=== PATIENT | male | born 1965 | race Caucasian/White ===

== ENCOUNTER 2016-09-28 14:37 | Emergency (ER) | payer OTHER ==
[~2016-09-28] VITALS: Ht 167.6 cm; Wt 59.1 kg
[~2016-09-28 14:37] MED LIST: BENADRYL50 MG; FIORICET 325 MG1 TA1; LORTAB 5/500 501 TAB PO; MINIPRESS 1M1 MG/CAP PO; NEURONTIN300 MG/CAP PO; NO HOME MEDICATIONS; NORCO 325 MG-51 TAB; PERCOCET 500 MG1 TAB PO; PRILOSEC 20MG20 MG PO; RISPERDAL4 MG PO; ROBAXIN500 MG PO; ROXICODONE 55 MG/TAB PO; UNABLE; ZOLOFT 100MG100 MG PO
[2016-09-28 14:38] VITALS: TEMP 97.9
[2016-09-28 15:05] LABS: BASO # 0.1 (0.0-0.2); EOS # 0.2 (0.0-0.7); EOS % 2.4 % (0-4.0); GRAN # 4.1 (1.4-6.5); GRAN % 60.7 % (42.2-75.2); HEMATOCRIT 44.9 % (42.0-52.0); HEMOGLOBIN 15.9 g/dl (13.5-18.0); LYMPH # 2.1 (1.2-3.4); LYMPH % 30.9 % (20.0-51.0); MEAN CELL VOLUME 93 fl (80.0-100.0); MEAN CORPUSCULAR HEMOGLOBIN 33 pg (27.0-31.0); MEAN CORPUSCULAR HGB CONC 35 g/dl (33.0-37.0); MONO # 0.3 (0.1-0.6); MONO % 4.9 % (1.7-9.3); PLATELET COUNT 95 K/mm3 (130-400); RED BLOOD COUNT 4.84 M/mm3 (4.20-5.60); WHITE BLOOD COUNT 6.7 K/mm3 (4.8-10.8)
[2016-09-28 15:14] LABS: ADJUSTED CALCIUM 8.5 mg/dL (8.4-10.2); ALBUMIN 4.1 gm/dL (3.5-5.0); BILIRUBIN,TOTAL 0.9 mg/dL (0.0-1.0); CALCIUM 8.6 mg/dL (8.4-10.2); CREATININE, serum 0.72 mg/dL (0.66-1.25); POTASSIUM 4.3 mmol/L (3.4-5.0); TOTAL PROTEIN 7.5 gm/dL (6.4-8.2)
[2016-09-28 16:45] VITALS: BP 145/86; PULSE 106
== END 2016-09-28 16:46 | disposition home or self-care (01) ==
LOC: COL.ER 14:37
PROVIDERS: Emergency Medicine
DX: F10.229 Alcohol dependence with intoxication, unspecified (principal); Y90.8 Blood alcohol level of 240 mg/100 ml or more; F17.200 Nicotine dependence, unspecified, uncomplicated
CPT/HCPCS: J2060; J7030

== ENCOUNTER 2017-08-29 09:56 | Inpatient (IN) | payer OTHER ==
[~2017-08-29] VITALS: Ht 152.4 cm; Wt 66.6 kg
[2017-08-29] VITALS (207 sets, daily range): BP systolic 101–117; BP diastolic 76–83; PULSE 97–131; TEMP 97.5–97.7; O2SAT 69–100
[~2017-08-29 09:56] MED LIST changes: -BENADRYL50 MG; +BENADRYL50 MG PO
[2017-08-29] MEDS ORDERED: KEPPRA PO (10:10)
[2017-08-29 10:28] LABS: BASO % 0.3 % (0.0-2.0); EOS # 0.1 (0.0-0.7); EOS % 0.9 % (0-4.0); GRAN # 8.8 (1.4-6.5); GRAN % 74.9 % (42.2-75.2); HEMATOCRIT 46.9 % (42.0-52.0); HEMOGLOBIN 16.2 g/dl (13.5-18.0); LYMPH # 1.8 (1.2-3.4); LYMPH % 14.9 % (20.0-51.0); MEAN CELL VOLUME 95 fl (80.0-100.0); MEAN CORPUSCULAR HEMOGLOBIN 33 pg (27.0-31.0); MEAN CORPUSCULAR HGB CONC 35 g/dl (33.0-37.0); MEAN PLATELET VOLUME 10.3 fl (7.4-10.4); MONO # 0.9 (0.1-0.6); PLATELET COUNT 150 K/mm3 (130-400); RED BLOOD COUNT 4.94 M/mm3 (4.20-5.60); WHITE BLOOD COUNT 11.7 K/mm3 (4.8-10.8)
[2017-08-29 10:33] LABS: PROTHROMBIN TIME 11.9 SECONDS (9.7-12.8)
[2017-08-29 10:38] LABS: ALANINE AMINOTRANSFERASE 84 U/L (21-72); ALBUMIN 4.7 gm/dL (3.5-5.0); ALKALINE PHOSPHATASE 159 U/L (50-136); ANION GAP 19 mmol/L (7-16); BILIRUBIN,TOTAL 1.6 mg/dL (0.0-1.0); BLOOD UREA NITROGEN 15 mg/dL (9-20); CALCIUM 9.6 mg/dL (8.4-10.2); CARBON DIOXIDE 22 mmol/L (22-30); CHLORIDE 92 mmol/L (98-107); CREATININE, serum 1.23 mg/dL (0.66-1.25); GLUCOSE 182 mg/dL (74-106); POTASSIUM 3.4 mmol/L (3.4-5.0); SODIUM 133 mmol/L (137-145); TOTAL PROTEIN 8.1 gm/dL (6.4-8.2)
[2017-08-29 10:52] LABS: TROPONIN-I < 0.012 ng/mL (0.000-0.034)
[2017-08-29 11:03] LABS: INFLUENZA A NEGATIVE; INFLUENZA B NEGATIVE
[2017-08-29 11:23] LABS: PROLACTIN 52.7 ng/mL (3.7-17.9)
[2017-08-29 11:31] LABS: COLLECTION METHOD CLEAN CATCH
[2017-08-29 11:46] LABS: HYALINE CAST >12 /lpf; MUCOUS Present /lpf; PH 5 (5-8); URINE APPEARANCE Cloudy; URINE BACTERIA Rare /hpf; URINE BILIRUBIN Positive (NEGATIVE); URINE BLOOD 1+ (NEGATIVE); URINE COLOR Amber; URINE GLUCOSE Negative (NEGATIVE); URINE KETONE Trace (NEGATIVE); URINE LEUKOCYTE ESTERASE Negative (NEGATIVE); URINE PROTEIN(semi-quant) 3+ (NEGATIVE); URINE RBC 20-50 /hpf; URINE UROBILINOGEN >=4.0 mg/dL (NEGATIVE)
[2017-08-29 12:21] LABS: LIPASE 63 U/L (23-300)
[2017-08-29 17:25] LABS: AMPHETAMINE URINE NEGATIVE; BARBITURATES URINE NEGATIVE; BENZODIAZEPINES URINE NEGATIVE; BUPRENORPHINE URINE NEGATIVE; METHADONE URINE NEGATIVE; OPIATES URINE POSITIVE; OXYCODONE URINE POSITIVE; PHENCYCLIDINE URINE NEGATIVE; PROPOXYPHENE URINE NEGATIVE; THC CANNABINOIDS URINE NEGATIVE; TRICYCLIC ANTIDEPRESS URINE NEGATIVE
[2017-08-30] VITALS (7 sets, daily range): BP systolic 110–141; BP diastolic 71–100; PULSE 74–97; TEMP 97.1–97.8
[2017-08-30 05:23] LABS: ADD PATHOLOGY DIFF REVIEW NO
[2017-08-30 05:37] LABS: ADJUSTED CALCIUM 8.8 mg/dL (8.4-10.2); ALBUMIN 2.7 gm/dL (3.5-5.0); BILIRUBIN,TOTAL 0.8 mg/dL (0.0-1.0); CALCIUM 7.8 mg/dL (8.4-10.2); CHOLESTEROL RISK RATIO 3.7; CREATININE, serum 0.63 mg/dL (0.66-1.25); MAGNESIUM 1.4 mg/dL (1.6-2.3); POTASSIUM 3.4 mmol/L (3.4-5.0); TOTAL PROTEIN 5.4 gm/dL (6.4-8.2)
[2017-08-30 05:54] LABS: PROTHROMBIN TIME 12.1 SECONDS (9.7-12.8)
[2017-08-30 06:16] LABS: MEAN CELL VOLUME 97 fl (80.0-100.0); MEAN CORPUSCULAR HGB CONC 34 g/dl (33.0-37.0); PLATELET COUNT 112 K/mm3 (130-400); RED BLOOD COUNT 3.22 M/mm3 (4.20-5.60); WHITE BLOOD COUNT 5.8 K/mm3 (4.8-10.8)
[2017-08-30 06:18] LABS: HEMATOCRIT 31.1 % (42.0-52.0); HEMOGLOBIN 10.6 g/dl (13.5-18.0); MEAN CORPUSCULAR HEMOGLOBIN 33 pg (27.0-31.0)
[2017-08-30 06:30] LABS: BAND 6 % (0-10); EOSINOPHIL 3 % (0-4); LYMPHOCYTE 32 % (20.0-51.0); NEUTROPHILS 55 % (42.0-75.2); PLATELET ESTIMATE NORMAL (NORMAL); TOTAL CELLS COUNTED 100
[2017-08-30 06:31] LABS: HEMATOCRIT 32.7 % (42.0-52.0); MEAN CELL VOLUME 99 fl (80.0-100.0); MEAN CORPUSCULAR HEMOGLOBIN 33 pg (27.0-31.0); MEAN CORPUSCULAR HGB CONC 33 g/dl (33.0-37.0); MEAN PLATELET VOLUME 11.1 fl (7.4-10.4); PLATELET COUNT 113 K/mm3 (130-400); RED BLOOD COUNT 3.32 M/mm3 (4.20-5.60); WHITE BLOOD COUNT 6.5 K/mm3 (4.8-10.8)
[2017-08-30 06:37] LABS: HEMOGLOBIN 10.8 g/dl (13.5-18.0)
[2017-08-30 09:56] LABS: BASO % 0.5 % (0.0-2.0); EOS # 0.2 (0.0-0.7); EOS % 3.5 % (0-4.0); GRAN # 3.4 (1.4-6.5); GRAN % 58.3 % (42.2-75.2); LYMPH # 1.5 (1.2-3.4); LYMPH % 26.5 % (20.0-51.0); MEAN CELL VOLUME 97 fl (80.0-100.0); MEAN CORPUSCULAR HGB CONC 33 g/dl (33.0-37.0); MEAN PLATELET VOLUME 10.4 fl (7.4-10.4); MONO # 0.6 (0.1-0.6); MONO % 10.7 % (1.7-9.3); PLATELET COUNT 128 K/mm3 (130-400); WHITE BLOOD COUNT 5.8 K/mm3 (4.8-10.8)
[2017-08-30 09:57] LABS: HEMATOCRIT 34.1 % (42.0-52.0); HEMOGLOBIN 11.4 g/dl (13.5-18.0); MEAN CORPUSCULAR HEMOGLOBIN 33 pg (27.0-31.0)
[2017-08-31 00:13] VITALS: BP 132/89; PULSE 84; TEMP 97.5
[2017-08-31 04:28] VITALS: BP 126/89; PULSE 69; TEMP 97.6
[2017-08-31 07:01] LABS: ALBUMIN 2.8 gm/dL (3.5-5.0); BILIRUBIN,TOTAL 0.4 mg/dL (0.0-1.0); CREATININE, serum 0.58 mg/dL (0.66-1.25); MAGNESIUM 1.9 mg/dL (1.6-2.3); POTASSIUM 3.8 mmol/L (3.4-5.0); TOTAL PROTEIN 5.4 gm/dL (6.4-8.2)
[2017-08-31 08:25] VITALS: BP 142/79; PULSE 70; TEMP 97.2
[2017-08-31 12:29] VITALS: BP 142/80; PULSE 68; TEMP 97.6
[2017-08-31 15:44] VITALS: BP 142/97; PULSE 73; TEMP 97.5
[2017-08-31 19:58] VITALS: BP 130/78; PULSE 82; TEMP 97.7
[2017-09-01 00:17] VITALS: BP 122/75; PULSE 75; TEMP 98.1
[2017-09-01 04:00] VITALS: BP 153/87; PULSE 85; TEMP 97.5
[2017-09-01 07:14] LABS: BASO % 0.7 % (0.0-2.0); EOS # 0.2 (0.0-0.7); EOS % 3.8 % (0-4.0); GRAN # 3.2 (1.4-6.5); GRAN % 55.7 % (42.2-75.2); LYMPH # 1.4 (1.2-3.4); LYMPH % 24.8 % (20.0-51.0); MEAN CELL VOLUME 100 fl (80.0-100.0); MEAN CORPUSCULAR HGB CONC 33 g/dl (33.0-37.0); MEAN PLATELET VOLUME 10.2 fl (7.4-10.4); MONO # 0.8 (0.1-0.6); MONO % 14.5 % (1.7-9.3); PLATELET COUNT 162 K/mm3 (130-400); RED BLOOD COUNT 3.32 M/mm3 (4.20-5.60); WHITE BLOOD COUNT 5.8 K/mm3 (4.8-10.8)
[2017-09-01 07:19] LABS: HEMATOCRIT 33.2 % (42.0-52.0); HEMOGLOBIN 10.9 g/dl (13.5-18.0); MEAN CORPUSCULAR HEMOGLOBIN 33 pg (27.0-31.0)
[2017-09-01 07:27] LABS: ALBUMIN 3.3 gm/dL (3.5-5.0); BILIRUBIN,TOTAL 0.4 mg/dL (0.0-1.0); CALCIUM 8.4 mg/dL (8.4-10.2); CREATININE, serum 0.56 mg/dL (0.66-1.25); POTASSIUM 3.5 mmol/L (3.4-5.0)
[2017-09-01 07:46] VITALS: BP 149/92; PULSE 70; TEMP 98
[2017-09-01 11:48] VITALS: BP 161/94; PULSE 90; TEMP 98.2
[2017-09-01 16:22] VITALS: BP 139/82; PULSE 86; TEMP 98.4
[2017-09-01] MEDS ORDERED: INCRUSE EL62.5 MCG/A IH (16:26)
[2017-09-01] MEDS ORDERED: KEPPRA 500MG500 MG PO (16:27)
[2017-09-01] MEDS ORDERED: LIPITOR 10MG10 MG PO (16:27)
[2017-09-01] MEDS ORDERED: ASPIRIN 32325 MG/TAB PO (16:27)
[2017-09-01] MEDS ORDERED: PHENOBARBITAL97.2 MG PO (16:30)
[2017-09-01] MEDS ORDERED: PHENOBARBITAL32.4 MG PO (16:31)
[2017-09-01] MEDS ORDERED: THIAMINE 1100 MG/TAB PO (16:32)
[2017-09-01] MEDS ORDERED: FOLIC ACID 11 MG/TA1 PO (16:32)
[2017-09-01] MEDS ORDERED: DUO-KAPS1 CAP PO (16:32)
[2017-09-01] MEDS ORDERED: NORCO 325 MG-51 TAB PO (20:29)
== END 2017-09-01 17:25 | disposition home or self-care (01) | DRG 100 ==
LOC: COL.ER 09:56 → MEDICAL 12:41 → ICU 12:41 → MEDICAL 08-30 12:49
PROVIDERS: Emergency Medicine; Internal Medicine; Physician Assistant; Psychiatry & Neurology Neurology
DX: G40.409 Other generalized epilepsy and epileptic syndromes, not intractable, without status epilepticus (principal); I63.9 Cerebral infarction, unspecified; E86.0 Dehydration; R19.7 Diarrhea, unspecified; F17.210 Nicotine dependence, cigarettes, uncomplicated; E83.42 Hypomagnesemia; J44.9 Chronic obstructive pulmonary disease, unspecified; Z91.14 Patient's other noncompliance with medication regimen; Z87.820 Personal history of traumatic brain injury
CPT/HCPCS: 99223-AI; 99232-AI; 99239; A9585; C9113; J0696; J1650; J2060; J2765; J3475; J7030

== ENCOUNTER 2017-09-01 19:22 | Emergency (ER) | payer OTHER ==
[~2017-09-01] VITALS: Ht 172.7 cm; Wt 65.9 kg
[~2017-09-01 19:22] MED LIST changes: +ASPIRIN 32325 MG/TAB PO; +DUO-KAPS1 CAP PO; +FOLIC ACID 11 MG/TA1 PO; +INCRUSE EL62.5 MCG/A IH; +KEPPRA 500MG500 MG PO; +KEPPRA PO; +LIPITOR 10MG10 MG PO; +PHENOBARBITAL32.4 MG PO; +PHENOBARBITAL97.2 MG PO; +THIAMINE 1100 MG/TAB PO
[2017-09-01 19:26] VITALS: BP 145/93; PULSE 99; TEMP 97.5
[2017-09-01] MEDS ORDERED: NORCO 325 MG-51 TAB PO (20:29)
== END 2017-09-01 20:37 | disposition home or self-care (01) ==
LOC: COL.ER 19:22
DX: S42.202A Unspecified fracture of upper end of left humerus, initial encounter for closed fracture (principal); F43.10 Post-traumatic stress disorder, unspecified; F17.210 Nicotine dependence, cigarettes, uncomplicated; Z86.73 Personal history of transient ischemic attack (TIA), and cerebral infarction without residual deficits; Z79.82 Long term (current) use of aspirin; W18.39XA Other fall on same level, initial encounter; Y92.009 Unspecified place in unspecified non-institutional (private) residence as the place of occurrence of the external cause

== ENCOUNTER 2018-09-07 04:12 | Emergency (ER) | payer OTHER ==
[~2018-09-07] VITALS: Ht 172.7 cm; Wt 75.0 kg
[~2018-09-07 04:12] MED LIST changes: +NORCO 325 MG-51 TAB PO
[2018-09-07 04:18] VITALS: BP 142/87; TEMP 97.8
[2018-09-07] MEDS ORDERED: KEPPRA1000 MG PO (04:25)
[2018-09-07] MEDS ORDERED: FLEXERIL 1010 MG/TAB PO (04:42)
[2018-09-07] MEDS ORDERED: LIDODERM 5% PATC1 EA TP (04:43)
[2018-09-07 04:52] VITALS: PULSE 99
== END 2018-09-07 04:52 | disposition home or self-care (01) ==
LOC: COL.ER 04:12
DX: G89.29 Other chronic pain (principal); M54.5 Low back pain; F43.10 Post-traumatic stress disorder, unspecified; F17.210 Nicotine dependence, cigarettes, uncomplicated

== ENCOUNTER 2018-09-07 11:21 | Emergency (ER) | payer OTHER ==
[~2018-09-07] VITALS: Ht 172.7 cm; Wt 75.0 kg
[~2018-09-07 11:21] MED LIST changes: +FLEXERIL 1010 MG/TAB PO; +KEPPRA1000 MG PO; +LIDODERM 5% PATC1 EA TP
[2018-09-07 11:27] VITALS: BP 135/76; TEMP 97
[2018-09-07 12:04] VITALS: PULSE 90
== END 2018-09-07 12:05 | disposition home or self-care (01) ==
LOC: COL.ER 11:21
DX: M54.5 Low back pain (principal); G89.29 Other chronic pain; F17.210 Nicotine dependence, cigarettes, uncomplicated; Z88.0 Allergy status to penicillin; Z79.82 Long term (current) use of aspirin
CPT/HCPCS: J2270; J2550